=== PATIENT | male | born 1975 | race Caucasian/White ===

== ENCOUNTER 2022-11-21 10:33 | Emergency (ER) | payer SELFPAY ==
[2022-11-21 10:59] VITALS: BP 139/71; PULSE 72; RESP 17; TEMP 36.8; O2SAT 97; BMI 25.0
[2022-11-21 13:30] LABS: Glucose Point of Care 349 mg/dL (70-110)
--- NOTE | 2022-11-21 13:42 | W.ED.GENADLT ---
HPI - General Adult General: Chief complaint: General Medical Stated complaint: Diabetic trouble Time Seen by Provider: 11/21/22 13:19 Source: patient Mode of arrival: ambulatory Limitations: no limitations History of Present Illness: Patient is a 47-year-old male presents to ED today requesting a refill on his NovoLog insulin. Patient states he is a type I diabetic with a continual glucose monitor and insulin pump. He states he ran out of his insulin 1 to 2 days ago. He states his primary care provider is located in [place]. POC glucose upon arrival was 349. Patient states he is currently asymptomatic and here simply requesting a refill. Onset (ago): day(s) Relieving factors: none Exacerbating factors: none Associated symptoms: Reports no associated symptoms; Deny chest pain, dyspnea, headache(s), malaise, nausea, rash, palpitations, syncope or vomiting Treatments prior to arrival: none Review of Systems Const: Denies: fever(s), chills, body aches, fatigue or malaise Eyes: Denies: change in vision, photophobia, floaters or seeing flashes Card: Denies: chest pain, palpitations, lightheadedness, syncope or pre-syncope Resp: Denies: dyspnea GI: Denies: abdominal pain, nausea, vomiting or diarrhea : Denies: flank pain or oliguria Musc: Denies: neck pain, back pain, extremity pain or joint pain Skin/Breast: Denies: rash Neuro: Denies: headache(s), numbness in extremities, weakness in extremities, sensory changes or dizziness Physical Exam Const: COMMON NORMALS: no acute distress, patient oriented x3, no limitations, alert and well nourished GENERAL APPEARANCE: cooperative ORIENTATION/CONSCIOUSNESS: Yes awake, Yes oriented to person, Yes oriented to place and Yes oriented to time HENMT: COMMON NORMALS: normocephalic and atraumatic HEAD & SCALP: normal to inspection, normocephalic and atraumatic Resp: COMMON NORMALS: normal respiratory effort and clear to auscultation bilaterally AUSCULTATION: clear to auscultation bilaterally Cardio: COMMON NORMALS: regular rate and regular rhythm RATE: regular rate RHYTHM: regular rhythm GI: COMMON NORMALS: Normal to inspection, nondistended, normoactive bowel sounds present, Soft to palpation and non-tender PALPATION: Yes Soft to palpation Extremity: COMMON NORMALS: normal to inspection GENERAL: Yes normal exam except as noted Neuro: OCTAVIANO COMA SCALE: document GCS findings Callender coma scale eye opening: Spontaneous Octaviano coma scale verbal response: Orientated Callender coma scale motor response: Obey commands Octaviano coma scale total score: 15 COMMON NORMALS: patient oriented x3, moves all extremities, no focal motor deficits, no sensory deficits noted and gait normal SENSORIUM/ORIENTATION: Yes alert, Yes oriented to person, Yes oriented to place and Yes oriented to time Skin: COMMON NORMALS: no rashes or lesions noted GENERAL SKIN EXAM: no rashes or lesions noted Course Vital Signs: Vital signs: Vital Signs Temperature 98.3 F 11/21/22 10:59 Pulse Rate 72 11/21/22 10:59 Respiratory Rate 17 11/21/22 10:59 Blood Pressure 139/71 11/21/22 10:59 Pulse Oximetry 97 11/21/22 10:59 Oxygen Delivery Me thod Room Air 11/21/22 10:59 MDM - General Adult Medical Decision Making Patient will be provided a prescription for NovoLog that he can use to refill his insulin pump. His vital signs are stable. He has no physical complaints at this time. He states he will continue to follow-up with his primary care provider. Return ED precautions given. Lab Data Laboratory Results POC Glucose 349 mg/dL (70-110) H 11/21/22 13:26 Discharge Plan Discharge Patient Disposition: Home Clinical Impression: Medication refill Diabetes mellitus type I Qualifiers: Diabetes mellitus complication status: without complication Qualified Code(s): E10.9 - Type 1 diabetes mellitus without complications Condition: Stable Prescriptions: New Novolog U-100 Insulin aspart 100 unit/mL solution 1 unit continuous subcutaneous infusion PRN PRN (Reason: hyperglycemia) Qty: 10 0RF Rx Instructions: use to refill insulin pump cartridge No Action Novolog U-100 Insulin aspart 100 unit/mL solution See Rx Instructions .ROUTE .COMPLEX Rx Instructions: USE WITH INSULIN PUMP DIRECTED, MAX 90 UNITS PER DAY Discharge Orders: Discharge ED (Routine); Ordered 11/21/22 Ordered By: Malia Sanchez Referrals: Mervat Ibarra MD [Primary Care Provider] - Patient Instructions: Opioid Safety, Pain Management Coding Level of Care Code ED Resource Forester for Chata Marquez
== END 2022-11-21 14:09 | disposition home or self-care (01) ==
PROVIDERS: Emergency Provider Physician Assistant; PCP Internal Medicine
DX: Z76.0 Encounter for issue of repeat prescription (principal); E10.9 Type 1 diabetes mellitus without complications; Z79.4 Long term (current) use of insulin
CPT/HCPCS: 36416; 82962; 99283